=== PATIENT | male | born 1960 | race Asian ===

== ENCOUNTER 2019-03-13 18:39 | Emergency (ER) | payer OTHER ==
[~2019-03-13] VITALS: Ht 177.8 cm; Wt 68.0 kg
[2019-03-13] MEDS ORDERED: LIDOCAINE HCL/PF 1% 30 ML SDV ONE (19:02)
--- NOTE | 2019-03-13 19:05 | NUR ---
PT PRESENTED TO THE ER WITH A C/O LACERATION ON LT HAND. PT STATED THAT HE WAS USING A CHAIN SAW AND CUT THE SKIN BETWEEN HIS THUMB AND INDEX FINGER ON THE LEFT HAND. PT HAS AN MATT BANDAGE TO THE LEFT HAND A PRESSURE DRSG. PT'S FINGERS ARE DISCOLORED. DRSG WAS REMOVED AND Ana JEFFERSON [employer] TECHNICIAN IS AT THE BEDSIDE. ACTIVE BLEEDING NOTED FROM THE WOUND. PT IS ABLE TO MOVE HIS FINGERS, MAKE A FIST, AND GIVE A THUMBS UP. PT IS AA&O X4.
[2019-03-13] MEDS ORDERED: TDAP [DIPH/PERTUSSIS/TET] 0.5 ML VIAL IM ONE ×2 (19:28→19:30)
--- NOTE | 2019-03-13 19:35 | NUR ---
CALLED [facility] RE: HAND XRAY READ
[2019-03-13] MEDS ORDERED: LIDOCAINE 1%-EPI 1:100,000 20 ML VIAL ONE (19:51)
--- NOTE | 2019-03-13 20:15 | NUR ---
DR PEARSON IS AT THE BEDSIDE SUTURING PT'S HAND.
[2019-03-13 20:58] VITALS: BP 138/75
== END 2019-03-13 20:58 | disposition home or self-care (01) ==
LOC: ER 18:39
DX: S61.412A Laceration without foreign body of left hand, initial encounter (principal); R53.1 Weakness; I10 Essential (primary) hypertension; Z86.73 Personal history of transient ischemic attack (TIA), and cerebral infarction without residual deficits; Z23 Encounter for immunization; W01.0XXA Fall on same level from slipping, tripping and stumbling without subsequent striking against object, initial encounter; Y93.89 Activity, other specified; Y92.89 Other specified places as the place of occurrence of the external cause; Y99.8 Other external cause status
CPT/HCPCS: 12001; 73130; 90471; 90715; 99283; A6402; A6403 ×2; J3490 ×2; J7030

== ENCOUNTER 2019-03-19 12:06 | Emergency (ER) | payer OTHER ==
[~2019-03-19] VITALS: Ht 177.8 cm; Wt 65.8 kg
[2019-03-19 12:43] VITALS: BP 146/97
== END 2019-03-19 12:59 | disposition home or self-care (01) ==
LOC: ER 12:07
DX: S61.412D Laceration without foreign body of left hand, subsequent encounter (principal); I10 Essential (primary) hypertension; Z86.73 Personal history of transient ischemic attack (TIA), and cerebral infarction without residual deficits; X58.XXXD Exposure to other specified factors, subsequent encounter